=== PATIENT | male | born 1985 | race Caucasian/White ===

== ENCOUNTER 2024-12-10 12:30 | Emergency (ER) | payer OTHER, SELFPAY ==
[2024-12-10 13:17] VITALS: BP 173/104; PULSE 109; RESP 20; TEMP 36.5; O2SAT 95; BMI 42.1
[2024-12-10] MEDS: diphenhydrAMINE 25 MG CAPSULE PO (13:46)
--- NOTE | 2024-12-10 13:52 | ED.SKABFB ---
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 And notice that he now has a rash there, last night and the rash is spread to his left leg also, his arms. He does not have it on his torso or his face. Very itchy. He did not take anything but did try some triamcinolone cream on here as suggested by his significant other. Related Data Home Medications ?Medication ?Instructions ?Recorded ?Confirmed No Known Home Medications 12/10/24 12/10/24 Allergies Allergy/AdvReac Type Severity Reaction Status Date / Time No Known Drug Allergies Allergy Verified 12/10/24 13:16 Review of Systems Status of ROS: Reports: 10 or more systems reviewed and unremarkable except as noted in History and below PFSH PFSH Social History Smoking Status: Never smoker Do you use any of these nicotine containing products: None Second hand tobacco smoke exposure: No How often do you have a drink containing alcohol: never How often do you have six or more drinks on one occasion: Never AUDIT-C Alcohol total score: 0 Non-prescribed substance use: denies use service: No Exam Narrative: Exam Narrative: On examination in room 4 is in no apparent distress there is an area of almost like a contact dermatitis red area on his right burk, on his right upper leg, appears that he has itched it. And also on his left leg, no vesicles are noted. There is also red rash on his arms bilaterally. None on his chest or his abdomen. None on his face. Const: Vital Signs, click to edit/add: Vital Signs - 24 hr 12/10/24 13:17 Temperature 97.7 F Pulse Rate [Pulse Oximeter] 109 H Respiratory Rate 20 Blood Pressure [Ri ght Upper Arm] 173/104 H Pulse Oximetry 95 Oxygen Delivery Me thod Room Air Documenting provider has reviewed patient's vital signs: yes Course Course ED Course: I discussed with him this is more consistent with a contact dermatitis situation almost looks like poison yahaira or a plant based. I think a reasonable course here would be some Benadryl for itching, and use of prednisone for the rash itself. He will need to wash all his clothes is if this is a oleo resin it can be spread unless he washes his clothes. Went over warning signs, and use of the medication, it was also noted his blood pressure was elevated, I recommend that he gets this recheck Vital Signs Vital signs: Initial Vital Signs Temperature 97.7 F 12/10/24 13:17 Temperature Source Temporal Artery Scan 12/10/24 13:17 Pulse Rate 109 H 12/10/24 13:17 Respiratory Rate 20 12/10/24 13:17 Blood Pressure 173/104 H 12/10/24 13:17 Blood Pressure Mean 127 H 12/10/24 13:17 Pulse Oximetry 95 12/10/24 13:17 Oxygen Delivery Method Room Air 12/10/24 13:17 Vital Signs Temperature 97.7 F 12/10/24 13:17 Pulse Rate 109 H 12/10/24 13:17 Respiratory Rate 20 12/10/24 13:17 Blood Pressure 173/104 H 12/10/24 13:17 Pulse Oximetry 95 12/10/24 13:17 Oxygen Delivery Method Room Air 12/10/24 13:17 Temperature 97.7 F 12/10/24 13:17 Pulse Rate 109 H 12/10/24 13:17 Respiratory Rate 20 12/10/24 13:17 Blood Pressure 173/104 H 12/10/24 13:17 Pulse Oximetry 95 12/10/24 13:17 Oxygen Delivery Method Room Air 12/10/24 13:17 Medications Administered Medications: Discontinued Medications Generic Name Dose Route Start Last Admin Trade Name Freq PRN Reason Stop Dose Admin Diphenhydramine HCl 25 mg 12/10/24 13:42 12/10/24 13:46 Diphenhydramine 25 Mg Capsule PO 12/10/24 13:43 25 mg ONCE ONE Administration MDM - Skin/Abscess/Foreign Bdy MDM Narrative Medical decision making narrative: Differential diagnosis include but are not limited to contact dermatitis, allergic reaction, shingles, impetigo, seborrheic dermatitis, Khanh Garry syndrome, ITP, meningococcus, HSP Medical Records Attestation: I reviewed the patient's medical records. Discharge Plan Discharge Clinical Impression: Contact dermatitis, Elevated BP without diagnosis of hypertension Patient Disposition: Home, Self-Care Condition: Stable Instructions: Contact Dermatitis (DC) Additional Instructions: Use of Benadryl for the itchiness, prednisone will also help calm this down. We will try that also. Please wash all your clothes if this is from a contact dermatitis, you can spread around but just touching clothes that have not been washed. Benadryl dosages 25-50 mg p.o. t.i.d. p.r.n., It may just be from the itchiness, but your blood pressure was significantly elevated, I would get this rechecked with primary care Activity Level: Light activity Prescriptions: No Action No Known Home Medications Stand Alone Forms: MyHealth Info Instructions
--- OUTSIDE RECORDS SUMMARY | 2024-12-10 14:11 | XMS_ITS | Continuity of Care Document ---
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 By Computer 31550 011 SHEELA LEMUS [facility] Patient education, not otherwise cla ified, non-physician provider, group, per se ion 010 MADELIN VENTURA [facility] RBC Glucose 6-phosphate Dehydrogenase RBC Glucose 6-phosphate Dehydrogenase 17240 010 JASMIN CALDERON [facility] Immunization Administration Each Additional Vaccine 010 JELLICO LARRY [place] [facility] Vaccines Viral Measles, Mumps and Rubella, Live Vaccines Viral Measles, Mumps and Rubella, Live 31775 010 JELLICO, LARRY [place] [facility] Hepatitis A And Hepatitis B (Intramuscular Use) Adult Dosage Hepatitis A And Hepatitis B (Intramuscular Use) Adult Dosage 32302 010 TAVERASLARRY JUÁREZ [facility] Immunization Administration One Vaccine Immunization Administration One Vaccine 36287 07/05/20 LARRY TAVERAS [place] [facility] Injection, penicillin G benzathine, up to 1,200,000 units ANNE GONSALEZ Vaccines Viral Measles, Mumps and Rubella, Live Vaccines Viral Measles, Mumps and Rubella, Live 69144 ANNE GONSALEZ Vaccines Viral Polio, Inactivated (Salk) Vaccines Viral Polio, Inactivated (Salk) 09574 ANNE GONSALEZ Influenza Virus Vaccine Pandemic Formulation Influenza Virus Vaccine Pandemic Formulation 43161 ANNE GONSALEZ Hepatitis A Vaccine Adult Dosage (Intramuscular Use) Hepatitis A Vaccine Adult Dosage (Intramuscular Use) 91881 ANNE GONSALEZ Hepatitis B Vaccine (Active); 20 Years and Above ANNE GONSALEZ Venipuncture Venipuncture 98425 ANNE GONSALEZ Tdap Vaccine Tdap Vaccine 10098 ANNE GONSALEZ Influenza Virus Vaccine Live Intranasal ANNE GONSALEZ Meningococcal Polysacch Diphtheria Toxoid Conjugate Vaccine ANNE GONSALEZ Immunization Administration Each Additional Vaccine ANNE GONSALEZ Immunization Admin By Intranasal / Oral Route One Vaccine Immunization Admin By Intranasal / Oral Route One Vaccine 61338 ANNE GONSALEZ Immunization Administration H1N1 Influenza Virus Immunization Administration H1N1 Influenza Virus [address] Supervised Injection Intramuscular Antibiotic Supervised Injection Intramuscular Antibiotic 00694 ANNE GONSALEZ Skin Test Anergy Tuberculin Intradermal Skin Test Anergy Tuberculin Intradermal 44511 ANNE GONSALEZ Audiometry Group Testing Audiometry Group Testing 84001 [address] Determination Of Refractive State Determination Of Refractive State 58650 ARIELLA LAWRENCE Ophthalmological Prior Patient Start Comprehensive Care Ophthalmological Prior Patient Start Comprehensive Care 12718 ARIELLA LAWRENCE [facility] Spectacles Services Fitting Monofocals (Not For Aphakia) Spectacles Services Fitting Monofocals (Not For Aphakia) 47188 010 JASMIN BRISCOE [facility] Ophthalmological New Patient Start Comprehensive Care Ophthalmological New Patient Start Comprehensive Care 78244 010 JASMIN BRISCOE [facility] Social History Combined list of available smoking, tobacco, and other social history from Department of Defense and Veterans Affairs facilities. Social History Type Response Date Comment Sourc e Tobacco smoking status NHIS VA-VAAES TOBACCO USE CURRENT NRT ACCEPT 05/24/2021 [facility] History of tobacco use VA-TOBACCO DOESNT USE WI 30 MIN WAKEUP 01/21/2021 [facility] History of tobacco use VA-TOBACCO QUIT 5 TO < 15 YRS 02/21/2020 [facility] History of tobacco use VA-TOBACCO QUIT 5 TO < 15 YRS 01/16/2019 [facility] This section is an empty social history section. [facility]D
[2024-12-10 14:29] VITALS: BP 171/126; PULSE 107; RESP 18; TEMP 36.9
== END 2024-12-10 14:30 | disposition home or self-care (01) ==
PROVIDERS: Emergency Provider Family Medicine
DX: L25.9 Unspecified contact dermatitis, unspecified cause (principal); R03.0 Elevated blood-pressure reading, without diagnosis of hypertension
CPT/HCPCS: 99283; A9270

== ENCOUNTER 2024-12-17 15:55 | Outpatient (CLI) | payer OTHER, SELFPAY | END 2024-12-17 15:56 | disposition home or self-care (01) | PROVIDERS: PCP Family Medicine; Visit Provider Family Medicine | DX: I10 Essential (primary) hypertension (principal); E66.813 Obesity, class 3; Z68.41 Body mass index [BMI] 40.0-44.9, adult | CPT/HCPCS: 80053; 80061 ==

== ENCOUNTER 2025-01-09 12:46 | Emergency (ER) | payer OTHER, SELFPAY ==
--- OUTSIDE RECORDS SUMMARY | 2025-01-09 12:48 | XMS_ITS | Continuity of Care Document ---
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 Type Response Date Comment Sourc e Tobacco smoking status NHIS VA-VAAES TOBACCO USE CURRENT NRT ACCEPT 05/24/2021 [facility] History of tobacco use VA-TOBACCO DOESNT USE WI 30 MIN WAKEUP 01/21/2021 [facility] History of tobacco use VA-TOBACCO QUIT 5 TO < 15 YRS 02/21/2020 [facility] History of tobacco use VA-TOBACCO QUIT 5 TO < 15 YRS 01/16/2019 [facility] This section is an empty social history section. [employer]
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
[2025-01-09 12:53] VITALS: BP 133/85; PULSE 95; RESP 16; TEMP 36.5; O2SAT 97; BMI 41.1
--- NOTE | 2025-01-09 13:01 | ED_ITS ---
HPI - General Adult General Date Seen: 01/09/25 Chief complaint: Extremity Pain/Injury, Lower Stated complaint: WC -right big toe Time Seen by Provider: 01/09/25 12:48 History of Present Illness HPI narrative: Patient is a 39-year-old here for evaluation of a foot injury that occurred yesterday while at work. 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 He says he is hobbling on it a little bit but is able to walk. He was wearing composite towed protective shoes at the time. He has noted some bruising and has a little bit of pain but does not think it is broken. He says his boss insisted that he be seen today. Medical history reviewed, he has a history of hypertension and a family history of diabetes but no personal history of diabetes. Related Data Previous Rx's ?Medication ?Instructions ?Recorded lisinopril 20 mg tablet 20 mg PO QDAY #30 tabs 12/17 metformin 500 mg tablet,extended See Rx Instructions P O QDAY #120 12/18/24 release 24 hr tabs Allergies Allergy/AdvReac Type Severity Reaction Status Date / Time No Known Drug Allergies Allergy Verified 12/17/24 15:06 PFSH PFSH Surgical History History of facial surgery ?Z98.890 - Other specified postprocedural states (ICD-10) Status post arthroscopy of right knee ?Z98.890 - Other specified postprocedural states (ICD-10) Family History (Updated 12/18/24 @ 12:48 by Tana Leija ~ CTA) Brother Diabetes Aunt Diabetes Father High blood pressure Mother High blood pressure Social History (Updated 12/18/24 @ 12:52 by Tana Leija ~ CTA) Narrative: 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 smoker Alcohol 1 drink a day What is your current living situation?: I presently have a place to live Problems where you live: no known problems In the past 12 months, utilities in danger of being shut off: no In past 12 months, lack of transportation kept you from medical appts, meetings, work, or getting things needed for daily living: no In the past 12 mos, have been you worried that your food would run out before you had money to buy more?: never true In the past 12 mos, the food you bought just didn't last and you didn't have money to buy more?: never true Smoking Status: Never smoker Do you use any of these nicotine containing products: None Second hand tobacco smoke exposure: No How often do you have a drink containing alcohol: never How often do you have six or more drinks on one occasion: Never AUDIT-C Alcohol total score: 0 Non-prescribed substance use: denies use How often does anyone, including family, friends and others, physically hurt you : never How often does anyone, including family, friends and others, insult or talk down to you: never How often does anyone, including family, friends and others, threaten you with harm: never How often does anyone, including family, friends and others, scream or curse at you: never service: No Exam Narrative: Exam Narrative: Vital signs reviewed In general, alert, well-appearing middle-age male. Extremities: Examination of the right foot shows some bruising over the dorsal aspect of the great toe. No significant swelling. He does have tenderness over the bruised area but does not have tenderness over the plantar aspect of the foot. Foot is otherwise atraumatic. Distal CMS intact. No lacerations or nasal trauma. Const: Vital Signs, click to edit/add: Vital Signs - 24 hr 01/09/25 12:53 Temperature 97.7 F Pulse Rate [Pulse Oximeter] 95 Respiratory Rate 16 Blood Pressure [Ri ght Upper Arm] 133/85 Pulse Oximetry 97 Oxygen Delivery Me thod Room Air Course Course ED Course: Advised that we do an x-ray just to make sure that there are no bony injuries given that this is a work related injury. By my review, there is a minimally displaced fracture of the proximal of the the distal phalanx. Reviewed this with the patient. He declined donya taping at this time, discussed that he can do this at home if he would like for help with pain and stabilization for healing. Anticipate that this will heal without difficulty but if he continues to have significant problems or feels he is getting worse, return or see primary care. Radiology report reviewed, agrees with my interpretation. Vital Signs Vital signs: Initial Vital Signs Temperature 97.7 F 01/09/25 12:53 Temperature Source Temporal Artery Scan 01/09/25 12:53 Pulse Rate 95 01/09/25 12:53 Respiratory Rate 16 01/09/25 12:53 Blood Pressure 133/85 01/09/25 12:53 Blood Pressure Mean 101 01/09/25 12:53 Blood Pressure Position Sitting 01/09/25 12:53 Pulse Oximetry 97 01/09/25 12:53 Oxygen Delivery Method Room Air 01/09/25 12:53 Vital Signs Temperature 97.7 F 01/09/25 12:53 Pulse Rate 95 01/09/25 12:53 Respiratory Rate 16 01/09/25 12:53 Blood Pressure 133/85 01/09/25 12:53 Pulse Oximetry 97 01/09/25 12:53 Oxygen Delivery Method Room Air 01/09/25 12:53 Temperature 97.7 F 01/09/25 12:53 Pulse Rate 95 01/09/25 12:53 Respiratory Rate 16 01/09/25 12:53 Blood Pressure 133/85 01/09/25 12:53 Pulse Oximetry 97 01/09/25 12:53 Oxygen Delivery Method Room Air 01/09/25 12:53 Medical Decision Making Imaging Data Right great toe x-ray: Attestation: I have reviewed the pertinent imaging results. Radiologist's impression: [place] [address] Diagnostic Imaging Report Patient: Aristides Candelaria MR#: [id number] : 1985 Acct:[id number] Loc: ED Service Date: 01/09/[address]: Ordering Physician: Danielle Menchaca M.D. Date of Service: 01/09/25 Procedure(s): XR great toe RT Accession Number(s): [id number] cc: Danielle Menchaca M.D.; Konstantin Hartley M.D.~ For Patients: As a result of the Century Cures Act, medical imaging exams and procedure reports are released immediately into your electronic medical record. You may view this report before your referring provider. If you have questions, please contact your health care provider. Indication: Crush injury Technique: Three views of the right 1st toe Comparison: None Findings/Impression: There is an obliquely oriented, nondisplaced fracture at the lateral base of the 1st distal phalanx. No suspicious osseous lesions. Moderate soft tissue edema of the 1st toe. Dictated by Toribio Saleh MD @ 01/09/2025 1:31:49 PM Discharge Plan Discharge Clinical Impression: Fracture of toe of right foot Patient Disposition: Home, Self-Care Condition: Stable Instructions: Toe Fracture (ED) Additional Instructions: As discussed, donya taping your big toe to the 2nd toe can provide support for your broken toe, help with pain and healing. You can donya tape for 3-4 weeks or until pain is improved. Ibuprofen or Tylenol are fine if needed for pain. This should improve over the next couple of weeks, if you continue to have significant problems or failure getting worse rather than better, return or see your primary doctor. Prescriptions: No Action lisinopril 20 mg tablet 20 mg PO QDAY Qty: 30 2RF metformin 500 mg tablet extended release 24 hr See Rx Instructions PO QDAY Qty: 120 5RF Rx Instructions: 1 QD for 7D, then 2QD for 7D, then 3QD for 7D, then 4 QD orally every day; Follow Up/Referrals: Konstantin Hartley MD [Primary Care Provider, Family Practice] Stand Alone Forms: [employer] Info Instructions
== END 2025-01-09 13:29 | disposition home or self-care (01) ==
LOC: ED 13:34
PROVIDERS: Emergency Provider Emergency Medicine; PCP Family Medicine
DX: S92.414A Nondisplaced fracture of proximal phalanx of right great toe, initial encounter for closed fracture (principal); W22.8XXA Striking against or struck by other objects, initial encounter; Y99.0 Civilian activity done for income or pay
CPT/HCPCS: 73660; 99283

== ENCOUNTER 2025-06-16 07:09 | Emergency (ER) | payer OTHER, SELFPAY ==
[2025-06-16 07:13] VITALS: BP 144/95; PULSE 96; RESP 18; TEMP 36.8; O2SAT 99; BMI 40.4
--- NOTE | 2025-06-16 07:27 | ED_ITS ---
HPI - Abdominal Pain General Time Seen by Provider: 07:39 Date Seen: 06/16/25 Chief Complaint: Abdominal Pain Stated Complaint: Possible hernia Time Seen by Provider: 06/16/25 07:27 Source: patient Mode of arrival: ambulatory Limitations: no limitations History of Present Illness HPI narrative: 40-year-old male who presents today with a bulge in the abdomen. He noticed this while shoveling. He had no pain and posted back in. He says it was located just above and to the right of the belly button. He denies any nausea or vomiting. Related Data Home Medications ?Medication ?Instructions ?Recorded ?Confirmed aspirin 81 mg tablet 81 mg PO QDAY 03/18/2506/16 metformin 500 mg tablet,extended 2,000 mg PO QDAY 02/1906/16/25 release 24 hr Previous Rx's ?Medication ?Instructions ?Recorded lisinopril 20 mg tablet 20 mg PO QDAY #90 tabs 03/21 Allergies Allergy/AdvReac Type Severity Reaction Status Date / Time prochlorperazine (From Allergy Intermediate sick and Verified 06/16/25 07:21 Compazine) loopy mustard Allergy Mild itchy Verified 06/16/25 07:21 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 Alcohol 1 drink a day What is your current living situation?: I presently have a place to live Problems where you live: no known problems In the past 12 months, utilities in danger of being shut off: no In past 12 months, lack of transportation kept you from medical appts, meetings, work, or getting things needed for daily living: no In the past 12 mos, have been you worried that your food would run out before you had money to buy more?: never true In the past 12 mos, the food you bought just didn't last and you didn't have money to buy more?: never true Smoking Status: Never smoker Do you use any of these nicotine containing products: None Second hand tobacco smoke exposure: No How often do you have a drink containing alcohol: never How often do you have six or more drinks on one occasion: Never AUDIT-C Alcohol total score: 0 Non-prescribed substance use: denies use How often does anyone, including family, friends and others, physically hurt you : never How often does anyone, including family, friends and others, insult or talk down to you: never How often does anyone, including family, friends and others, threaten you with harm: never How often does anyone, including family, friends and others, scream or curse at you: never service: No Exam Narrative: Exam Narrative: General: Well-developed and well-nourished, no acute distress Head: Atraumatic and normocephalic Eyes: Pupils are equal reactive, extraocular motions intact, conjunctiva clear ENT: External nose and ears are normal, posterior pharynx without erythema or exudate Neck: No midline cervical tenderness, full spontaneous range of motion the neck, trachea midline, no adenopathy Heart: Regular rate and rhythm no murmurs or thrills Lungs: Clear to auscultation bilaterally without wheezes or crackles Abdomen: Soft, nontender, nondistended with active bowel sounds. No palpable hernia defect in the area the bulge indicated by the patient and it is somewhat medial transverse abdominis muscle Musculoskeletal: No tenderness, deformity, or edema Neurologic: Awake, alert, and oriented x3, no gross focal neurologic deficits, cranial nerves intact as tested Psych: Mood and affect are appropriate Skin: No rashes Const: Vital Signs, click to edit/add: Vital Signs - 24 hr 06/16/25 07:13 Temperature 98.3 F Pulse Rate [Pulse Oximeter] 96 Respiratory Rate 18 Blood Pressure [Ri ght Upper Arm] 144/95 H Pulse Oximetry 99 Oxygen Delivery Me thod Room Air Course Course ED Course: Additional records reviewed: None Additional history from: None Care impacted by: None Testing considered but not performed: See ED course Disposition: Home Patient presents today with concern of a bulge in the abdominal wall while shoveling. This was nonpainful and went away when he pushed on it. He indicates an area just superior and lateral to the umbilicus. There is no abdominal wall defect or tenderness. It is not as far lateral as would be expected for spigelian hernia and it was not periumbilical. This may represent a diastasis recti. At this point no further treatment. If he continues to notice this bulge should follow-up with surgery. Vital Signs Vital signs: Initial Vital Signs Temperature 98.3 F 06/16/25 07:13 Temperature Source Temporal Artery Scan 06/16/25 07:13 Pulse Rate 96 06/16/25 07:13 Respiratory Rate 18 06/16/25 07:13 Blood Pressure 144/95 H 06/16/25 07:13 Blood Pressure Mean 111 H 06/16/25 07:13 Blood Pressure Position Sitting 06/16/25 07:13 Pulse Oximetry 99 06/16/25 07:13 Oxygen Delivery Method Room Air 06/16/25 07:13 Vital Signs Temperature 98.3 F 06/16/25 07:13 Pulse Rate 96 06/16/25 07:13 Respiratory Rate 18 06/16/25 07:13 Blood Pressure 144/95 H 06/16/25 07:13 Pulse Oximetry 99 06/16/25 07:13 Oxygen Delivery Method Room Air 06/16/25 07:13 Temperature 98.3 F 06/16/25 07:13 Pulse Rate 96 06/16/25 07:13 Respiratory Rate 18 06/16/25 07:13 Blood Pressure 144/95 H 06/16/25 07:13 Pulse Oximetry 99 06/16/25 07:13 Oxygen Delivery Method Room Air 06/16/25 07:13 Discharge Plan Discharge Clinical Impression: Diastasis recti Patient Disposition: Home, Self-Care Condition: Stable Additional Instructions: Diastasis recti happens when the connective tissue between your rectus abdominis (six-pack) muscles is stretched, creating an abnormally wide distance between the muscles. This separation can present as a bulge, usually of the upper abdomen, that you may notice when you cough, sit up in bed or lift something heavy. If you continue to notice a bulge or if it becomes painful, follow-up with general surgery. If you notice a bulge and have vomiting and severe pain, return to the emergency department. Activity Level: Activity as Tolerated Discharge Diet: Regular Prescriptions: No Action aspirin 81 mg tablet 81 mg PO QDAY metformin 500 mg tablet extended release 24 hr 2,000 mg PO QDAY lisinopril 20 mg tablet 20 mg PO QDAY Qty: 90 1RF Follow Up/Referrals: Konstantin Hartley MD [Primary Care Provider, Family Practice] Stand Alone Forms: [employer] Info Instructions
== END 2025-06-16 07:48 | disposition home or self-care (01) ==
LOC: ED 07:43
PROVIDERS: Emergency Provider Family Medicine; PCP Family Medicine
DX: M62.08 Separation of muscle (nontraumatic), other site (principal)
CPT/HCPCS: 99283